=== PATIENT | female | born 1970 | race Caucasian/White ===

== ENCOUNTER 2023-10-14 09:46 | Outpatient (OUT) | payer OTHER, SELFPAY ==
--- NOTE | 2023-10-14 09:48 | MM_ITS ---
Patient Name: OUSMANE JOVEL MR#: [id number] : 1970 Exam Date: 10/14/2023 Ordering Doctor: HELIO JUARES RADIOLOGY REPORT PROCEDURE: MM TOMOSYNTHESIS SCREENING BI COMPARISON: MG MAMM SCREEN 3D RITA CAD, 09/12/2021. MG MAMM SCREEN 3D RITA CAD, 09/13/2022. INDICATIONS: screening Calculator Name NCI Breast Cancer Risk Assessment Tool 5 Year Breast Cancer Risk 2.90% Lifetime Breast Cancer Risk 23.20% Personal Breast Cancer No Personal Ovarian Cancer No Treatments None Family Cancers Sister with breast cancer at age 47. LOCATION: [facility] BREAST COMPOSITION: Scattered areas fibroglandular density. FINDINGS: DIAGNOSTIC CATEGORY 1--NEGATIVE. NO CHANGE FROM COMPARISON ASSESSMENT. Scattered benign-appearing calcifications are present. RIGHT BREAST: No significant suspicious finding. LEFT BREAST: No significant suspicious finding. RECOMMENDATIONS: ROUTINE MAMMOGRAM AND CLINICAL EVALUATION IN 12 MONTHS. PLEASE NOTE: A NORMAL MAMMOGRAM DOES NOT EXCLUDE THE POSSIBILITY OF BREAST CANCER. A CLINICALLY SUSPICIOUS PALPABLE LUMP SHOULD BE BIOPSIED. Dictated by: David Collado MD on 10/14/2023 at 10:28 Approved by: David Collado MD on 10/14/2023 at 10:32
== END 2023-10-14 09:47 | disposition home or self-care (01) ==
LOC: MAMMO 09:47
PROVIDERS: PCP Nurse Practitioner; Visit Provider Nurse Practitioner
DX: Z12.31 Encounter for screening mammogram for malignant neoplasm of breast (principal); Z80.3 Family history of malignant neoplasm of breast
CPT/HCPCS: 77063; 77067

== ENCOUNTER 2025-04-02 21:53 | Emergency (ER) | payer OTHER, SELFPAY ==
[2025-04-02] VITALS (12 sets, daily range): BP systolic 94–134; BP diastolic 51–85; PULSE 80–155; TEMP 36.7; O2SAT 99–100
--- NOTE | 2025-04-02 22:00 | XR_ITS ---
[facility] [place] [id number] Patient Name: OUSMANE JOVEL MRN: [id number] date: 1970 Sex: F Assigned Patient Location: ED.MAIN Current Patient Location: Accession/Order Number: [id number] Exam Date: 04/02/2025 22:09 Report Date: 04/03/2025 08:23 At the request of: POOL SHAIKH MD Procedure: XR chest 1V XR chest 1V 04/02/2025 10:26 PM SIGNS AND SYMPTOMS: ^hypotensive PROTOCOL: Frontal radiograph of the chest COMPARISON: 03/11/2019 FINDINGS: The trachea is midline. The heart and mediastinal structures are within normal limits. The lung parenchyma is clear. The bony thorax is intact. XR/XR chest 1V IMPRESSION: No acute cardiopulmonary pathology. Impression dictated by: Tanner Meza M.D. 04/03/2025 8:23 AM Dictation Location: [place] [address] Electronically authenticated by: [id number] Y Date: 04/03/2025 08:23
--- NOTE | 2025-04-02 22:00 | ECG_ITS ---
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 Measurements Intervals [place] Rate: 86 P: 55 SC: 168 QRS: 60 QRSD: 96 T: 34 QT: 418 QTc: 461 Interpretive Statements 1100 Sinus rhythm 8304 Long QTc interval 9150 abnormal ECG Compared to ECG 04/10/2020 15:46:26 T-wave abnormality no longer present Electronically Signed On 04-03-2025 10:28:52 EDT by AUSTIN NUNEZ M.D.
--- OUTSIDE RECORDS SUMMARY | 2025-04-02 22:01 | XMS_ITS | Encounter Summary ---
Author Organization [employer] s tem Address [id number] [address] [place] [address] Care Team Providers Care Scientific Editor Name Role Phone Edson Acuña APRN-DEHYDRATION UNIT OPERATOR Primary Care Provider + Encounter Details Date Type Department Care Team (Late Contact Info) Description 12/01/2024 Orders Only [facility] - Family Medicine [address] [place] [address] Ref Prov, [place] [address] Social History Tobacco Use Types Packs/Day Years Used Date Smoking Tobacco: Former Cigarettes Smokeless Tobacco: Never Alcohol Use Standard Drinks/Week Comments Yes 0 (1 standard drink = 0.6 oz pur e alcohol) Socially PHQ-2 Answer Date Recorded Total Score 0 12/02/2024 Childcare Answer Date Recorded Childcare Unknown 12/16/2018 Employment Answer Date Recorded Employment Unknown 12/16/2018 Hunger Screening Answer Date Recorded Within the past 12 months we worried whether our food would run out before we got money to buy more. Never True 12/02/2024 Within the past 12 months th e food we bought just didn't last and we didn't have money to get more. Never True 12/02/2024 Comments No Sex and Gender Information Value Date Recorded Sex Assigned at Not on file Legal Sex Female 11:33 AM EDT Gender Identity Not on file Sexual Orientation Not on file documented as of this encounter Plan of Treatment Upcoming Encounters Date Type Department Care Team (Late Contact Info) Description 04/06/2025 10:00 AM EDT Office Visit [facility] - [facility] [address] [place] [address] Edson Acuña, DIRECTOR UNDERWRITER SALES-DEHYDRATION UNIT OPERATOR [address], [facility] [address] [place] [address] 05/03/2025 10:20 AM EDT Office Visit [facility] - Family Medicine [address] [place] [address] Edson Acuña, DIRECTOR UNDERWRITER SALES-DEHYDRATION UNIT OPERATOR [address], [facility] [address] [place] [address] documented as of this encounter Procedures Procedure Name Priority Date/Time Associated Diagnosis Comments MULTIPLE LABS Routine 11/30/2024 3:16 PM EDT documented in this encounter Results * Multiple labs (11/30/2024 3:16 PM EDT) us Not In System Ref Prov [facility] Final Res ult MANUALLY TRANSCRIBED RESULTS documented in this encounter Visit Diagnoses Not on filedocumented in this encounter Additional Health Concerns Assessment Noted Time PHQ-9 Depression Total Score: 0 01/21/20 24 3:23 PM EDT A Body Mass Index follow-up plan has been documented for the patient 07/29/2024 10:34 AM EST documented as of this encounter Care Teams Scientific Editor Relationship Specialty Start Date End Date Edson Acuña, DIRECTOR UNDERWRITER SALES-DEHYDRATION UNIT OPERATOR [address] [place] [address] PCP - General Internal Medicine 01/31/25 documented as of this encounter
--- OUTSIDE RECORDS SUMMARY | 2025-04-02 22:01 | XMS_ITS | Encounter Summary ---
Author Organization [facility] Address [address] [facility] [place] [address] Care Team Providers Care Journal Box Inspector Name Role Phone Marguerite Evangelista Unavailable [phone] Anthony Harris MD Primary Care Provider [phone] Encounter Details Date Type Department Care Team (Late st Contact Info) Description 02/24/2023 Abstract [facility] [address] [place] [phone] Bret Gil, DPM [address] [place], [place] [phone] Social History Tobacco Use Types Packs/Day Years Used Date Smoking Tobacco: Never Alcohol Use Standard Drinks/Week Comments Never 0 (1 standard drink = 0.6 oz pur e alcohol) Caffeine intake: yes, coffee Comments Unknown Sex and Gender Information Value Date Recorded Sex Assigned at Not on file Legal Sex Female 7:09 PM EDT Gender Identity Not on file Sexual Orientation Not on file documented as of this encounter Plan of Treatment Not on file documented as of this encounter Visit Diagnoses Not on filedocumented in this encounter Care Teams Journal Box Inspector Relationship Specialty Start Date End Date Anthony Harris MD PCP - General Family Medicine 09/23/23 Marguerite Evangelista CRNP Referring Physician Nurse Practitioner 01/27/23 documented as of this encounter
--- OUTSIDE RECORDS SUMMARY | 2025-04-02 22:01 | XMS_ITS | Encounter Summary ---
Author [facility] Address [id number] [address] [place] [address] Care Team Providers Care Retail Manager Name Role Phone Edson Acuña Klaudia REGISTERED TRAVEL NURSE-AGRICULTURE PROFESSOR Primary Care Provider + Encounter Details Date Type Department Care Team (Late Contact Info) Description 10/13/2023 Orders Only [facility] - Family Medicine [address] [place] [address] Marguerite Evangelista, REGISTERED TRAVEL NURSE-AGRICULTURE PROFESSOR [address] [place] [address] Social History Tobacco Use Types Packs/Day Years Used Date Smoking Tobacco: Former Cigarettes Smokeless Tobacco: Never Alcohol Use Standard Drinks/Week Comments Yes 0 (1 standard drink = 0.6 oz pur e alcohol) Socially PHQ-2 Answer Date Recorded Total Score 0 10/09/2023 Childcare Answer Date Recorded Childcare Unknown 12/16/2018 Employment Answer Date Recorded Employment Unknown 12/16/2018 Hunger Screening Answer Date Recorded Within the past 12 months we worried whether our food would run out before we got money to buy more. Never True 10/09/2023 Within the past 12 months th e food we bought just didn't last and we didn't have money to get more. Never True 10/09/2023 Comments No Sex and Gender Information Value [...] - Family Medicine [address] [place] [address] Edson Acuña, REGISTERED TRAVEL NURSE-AGRICULTURE PROFESSOR [address], [facility] [address] [place] [address] 05/03/2025 10:20 AM EDT Office Visit [facility] - Family Medicine [address] [place] [address] Edson Acuña, REGISTERED TRAVEL NURSE-AGRICULTURE PROFESSOR [address], [facility] [address] [place] [address] documented as of this encounter Visit Diagnoses Not on filedocumented in this encounter Additional Health Concerns Assessment Noted Time PHQ-9 Depression Total Score: 0 10/09/19 24 1:03 PM EDT A Body Mass Index follow-up plan has been documented for the patient 10/09/2023 1:58 PM EDT documented as of this encounter Care Teams Retail Manager Relationship Specialty Start Date End Date Edson Acuña, REGISTERED TRAVEL NURSE-AGRICULTURE PROFESSOR [address] [place] [address] PCP - General Internal Medicine 01/31/25 documented as of this encounter
--- OUTSIDE RECORDS SUMMARY | 2025-04-02 22:01 | XMS_ITS | Encounter Summary ---
Author Organization [employer] s tem Address [id number] [address] [place] [address] Care Team Providers Care Melter Clerk Name Role Phone Edson Acuña APRN-PROFESSOR OF LEGAL STUDIES Primary Care Provider + Encounter Details Date Type Department Care Team (Late Contact Info) Description 04/01/2025 Orders Only [facility] - Family Medicine [address] [place] [address] Ref Prov, [place] [address] Social History Tobacco Use Types Packs/Day Years [...] - Family Medicine [address] [place] [address] Edson Acuña, PENCIL INSPECTOR-PROFESSOR OF LEGAL STUDIES [address], [address] [place] [address] 05/03/2025 10:20 AM EDT Office Visit [facility] - Family Medicine [address] [place] [address] Edson Acuña, PENCIL INSPECTOR-PROFESSOR OF LEGAL STUDIES [address], [facility] [address] [place] [address] documented as of this encounter Procedures Procedure Name Priority Date/Time Associated Diagnosis Comments MULTIPLE LABS Routine 04/01/2025 8:03 AM EDT CBC W AUTO DIFF BLD Routine 04/01/2025 6:54 AM EDT documented in this encounter Results * Multiple labs (04/01/2025 8:03 AM EDT) us Not In System Ref Prov [facility] Final Res ult Performing Organization Address [facility] de Phone Number MANUALLY TRANSCRIBED RESULTS * CBC W Auto Diff Bld (04/01/2025 6:54 AM EDT) us Not In System Ref Prov LAB BLOOD ORDERABLES Elizabeth l Result Performing Organization Address [facility] de Phone Number MANUALLY TRANSCRIBED RESULTS documented in this encounter Visit Diagnoses Not on filedocumented in this encounter Additional Health Concerns Assessment Noted Time PHQ-9 Depression Total Score: 0 12/03/19 8:40 AM EDT A Body Mass Index follow-up plan has been documented for the patient 12/02/2024 9:14 AM EDT documented as of this encounter Care Teams Melter Clerk Relationship Specialty Start Date End Date Edson Acuña, PENCIL INSPECTOR-PROFESSOR OF LEGAL STUDIES [address] [place] [address] PCP - General Internal Medicine 01/31/25 documented as of this encounter
--- OUTSIDE RECORDS SUMMARY | 2025-04-02 22:01 | XMS_ITS | Clinical Summary ---
Author Organization [facility] Address [address] [place] [address] Care Team Providers Care Cop Name Role Phone Marguerite Evangelista ISI Unavailable [phone] Anthony Harris MD Primary Care Provider [phone] Allergies Active Allergy Reactions Criticality Noted Date Comments Hydromorphone Anaphylaxis,Shortnes s of breath High 01/27/2023 Sulfamethoxazole-Trimethoprim Rash Low 2011 Medications vilazodone (Viibryd) 20 MG tablet Take 20 mg by mouth in the morning. 07/19/2022 Active Xarelto 10 MG tablet Take 10 mg by mouth in the morning. 01/09/2023 Active levothyroxine (Synthroid, Levoxyl) 137 MCG tablet Take 137 mcg by mouth in the morning. 01/21/2023 Active diclofenac sodium (Voltaren XR) 100 mg 24 hr tablet Take 100 mg by mouth in the morning and 100 mg before bedtime. 01/08/2023 Active Multiple Vitamin (multivitamin) tablet Take 1 tablet by mouth in the morning. Active calcium citrate (Calcitrate) 950 (200 Ca) MG tablet Take 950 mg by mouth in the morning. Active FeroSul 325 (65 Fe) MG tablet Take 1 tablet by mouth in the morning. Active celecoxib (CeleBREX) 200 MG capsule Take 200 mg by mouth in the morning and 200 mg in the evening. 06/05/2023 Active pseudoephedrine -DM-GG 60-15-400 MG tabletIndicatio ns:COVID-19 Take 1 tablet by mouth every 6 (six) hours if needed (Cough) 28 tablet 05/01/2024 Active Encounters Date Type Department Care Team Description 02/24/2025 10:00 AM EDT Treatment [facility] [address] [facility] [address] [place] [address] Melly Petersonissa, MARKETING TRAFFIC MANAGER Contracture, right knee (Primary Dx); Acute pain of right knee; Difficulty walking; Stiffness of right knee 02/24/2025 Bamboo flowsheet [facility] [address] [facility] [address] [place] [address] Kristen, Daxa, MARKETING TRAFFIC MANAGER 02/24/2025 Travel 02/22/2025 10:30 AM EDT Treatment [facility] [address] [facility] [address] [place] [address] Melly Petersonissa, MARKETING TRAFFIC MANAGER Contracture, right knee (Primary Dx); Acute pain of right knee; Difficulty walking; Stiffness of right knee 02/22/2025 Bamboo flowsheet [facility] [address] [facility] [address] [place] [address] Bernardobley, Daxa, MARKETING TRAFFIC MANAGER 02/22/2025 Travel 02/15/2025 11:00 AM EDT Treatment [facility] [address] [facility] [address] [place] [address] Lázaro Kamran, MARKETING TRAFFIC MANAGER Contracture, right knee (Primary Dx); Acute pain of right knee; Difficulty walking; Stiffness of right knee 02/15/2025 Bamboo flowsheet [facility] [address] [facility] [address] [place] [address] Lázaro Kamran, MARKETING TRAFFIC MANAGER 02/15/2025 Travel 02/10/2025 1:30 PM EDT Treatment [facility] [address] [facility] [address] [place] [address] Iván Nichols, MARKETING TRAFFIC MANAGER Contracture, right knee (Primary Dx); Acute pain of right knee; Difficulty walking; Stiffness of right knee 02/10/2025 Bamboo flowsheet [facility] [address] [facility] [address] [place] [address] Iván Nichols, MARKETING TRAFFIC MANAGER 02/10/2025 Travel 02/08/2025 12:30 PM EDT Treatment [facility] [address] [place] [place] [address] Kelbley, Daxa, MARKETING TRAFFIC MANAGER Contracture, right knee (Primary Dx); Acute pain of right knee; Difficulty walking 02/08/2025 Travel 02/07/2025 2:30 PM EDT Treatment [facility] [address] [place] [place] [address] Kelbley, Daxa, MARKETING TRAFFIC MANAGER Contracture, right knee (Primary Dx); Acute pain of right knee 02/07/2025 Bamboo flowsheet [facility] [address] [facility] [address] [place] [address] Kelbley, Daxa, MARKETING TRAFFIC MANAGER 02/07/2025 Travel 02/04/2025 9:30 AM EDT Treatment [facility] [address] [facility] [address] [place] [address] Kelbley, Daxa, MARKETING TRAFFIC MANAGER Contracture, right knee (Primary Dx); Acute pain of right knee 02/04/2025 Travel 02/03/2025 2:00 PM EDT Treatment [facility] [address] [facility] [address] [place] [address] Kelbley, Daxa, MARKETING TRAFFIC MANAGER Contracture, right knee (Primary Dx); Acute pain of right knee 02/03/2025 Bamboo flowsheet [facility] [address] [facility] [address] [place] [address] Kelbley, Daxa, MARKETING TRAFFIC MANAGER 02/03/2025 Travel 02/02/2025 2:00 PM EDT Evaluation [facility] [address] [facility] [address] [place] [address] Ching Mckenzie, PT Contracture, right knee (Primary Dx); Acute pain of right knee 02/02/2025 Plan of Care Documentation [facility] [address] [facility] [address] [place] [address] 02/02/2025 Bamboo flowsheet [facility] [address] [place] [place] [address] Ching Mckenzie, PT 02/02/2025 Travel 01/26/2025 Telephone [facility] [address] [place] [place] [address] Kelbley, Daxa, MARKETING TRAFFIC MANAGER LEXIS 02/01/25 (Per Dr. Duvall) 01/24/2025 11:00 AM EDT Treatment [facility] [address] [facility] [address] [place] [address] Ching Mckenzie, PT Acute pain of right knee (Primary Dx); Difficulty walking; Stiffness of right knee 01/24/2025 Bamboo flowsheet [facility] [address] [facility] [address] [place] [address] Ching Mckenzie, PT 01/24/2025 Travel 01/21/2025 2:30 PM EDT Treatment [facility] [address] [facility] [address] [place] [address] Kelbley, Daxa, MARKETING TRAFFIC MANAGER Acute pain of right knee (Primary Dx); Difficulty walking; Stiffness of right knee 01/21/2025 Bamboo flowsheet [facility] [address] [facility] [address] [place] [address] Kelbley, Daxa, MARKETING TRAFFIC MANAGER 01/21/2025 Travel 01/19/2025 1:30 PM EDT Treatment [facility] [address] [place] [place] [address] Kelbley, Daxa, MARKETING TRAFFIC MANAGER Acute pain of right knee (Primary Dx); Difficulty walking; Stiffness of right knee 01/19/2025 Bamboo flowsheet [facility] [address] [place] [place] [address] Melly Petersonissa, MARKETING TRAFFIC MANAGER 01/19/2025 Travel 01/17/2025 2:30 PM EDT Treatment [facility] [address] [facility] [address] [place] [address] Melly Petersonissa, MARKETING TRAFFIC MANAGER Acute pain of right knee (Primary Dx); Difficulty walking; Stiffness of right knee 01/17/2025 Bamboo flowsheet [facility] [address] [facility] [address] [place] [address] Melly Petresonissa, MARKETING TRAFFIC MANAGER 01/17/2025 Travel 01/13/2025 2:30 PM EDT Treatment [facility] [address] [facility] [address] [place] [address] Melly Petersonissa, MARKETING TRAFFIC MANAGER Acute pain of right knee (Primary Dx); Difficulty walking; Stiffness of right knee 01/13/2025 Bamboo flowsheet [facility] [address] [facility] [address] [place] [address] Daxa Peterson, MARKETING TRAFFIC MANAGER 01/13/2025 Travel 01/10/2025 2:30 PM EDT Treatment [facility] [address] [facility] [address] [place] [address] Melly Petersonissa, MARKETING TRAFFIC MANAGER Acute pain of right knee (Primary Dx); Difficulty walking; Stiffness of right knee 01/10/2025 Bamboo flowsheet [facility] [address] [facility] [address] [place] [address] Melly Petersonissa, MARKETING TRAFFIC MANAGER 01/10/2025 Travel 01/06/2025 12:30 PM EDT Treatment [facility] [address] [facility] [address] [place] [address] Iván Nichols, MARKETING TRAFFIC MANAGER Acute pain of right knee (Primary Dx); Difficulty walking; Stiffness of right knee 01/06/2025 Bamboo flowsheet [facility] [address] [facility] [address] [place] [address] Magdalena, Iván, MARKETING TRAFFIC MANAGER 01/06/2025 Travel 01/05/2025 Plan of Care Documentation [facility] [address] [facility] [address] [place] [address] 01/04/2025 3:30 PM EDT Evaluation [facility] [address] [facility] [address] [place] [address] Enrique Roca, PT Acute pain of right knee (Primary Dx); Difficulty walking; Stiffness of right knee 01/04/2025 Bamboo flowsheet [facility] [address] [facility] [address] [place] [address] Enrique Roca, PT 01/04/2025 Travel 01/03/2025 Travel from Last 3 Months Family History Medical History Relation Name Comments Diabetes Father Breast cancer Sister Relation Name Status Comments Father Alive Mother Alive Sister Social History Tobacco Use Types Packs/Day Years Used Date Smoking Tobacco: Never Tobacco Cessation:Counseling Given: Not Answered Alcohol Use Standard Drinks/Week Comments Never 0 (1 standard drink = 0.6 oz pur e alcohol) Caffeine intake: yes, coffee Comments Unknown Sex and Gender Information Value Date Recorded Sex Assigned at Not on file Legal Sex Female 7:09 PM EDT Gender Identity Not on file Sexual Orientation Not on file Last Filed Vital Signs Vital Sign Reading Time Taken Comments Blood Pressure 118/70 05/01/2024 9:04 AM EDT Pulse 87 05/01/2024 9:04 AM EDT Temperature 37.1 C (98.7 F) 05/01/2024 9:04 AM EDT Respiratory Rate - - Oxygen Saturation 98% 05/01/2024 9:04 AM EDT Inhaled Oxygen Concentration - - Weight 79.8 kg (176 lb) 05/01/2024 9:04 AM EDT Height 170.2 cm (5' 7 ) 03/31/2024 9:51 AM EDT Body Mass Index 27.57 03/31/2024 9:51 AM EDT Plan of Treatment Health Maintenance Due Date Last Done Comments CT Colonography 1972 Colonoscopy 1972 Colorectal Cancer Screening 1972 FIT-DNA 1972 FIT 1972 FOBT 1972 Sigmoidoscopy 1972 Pap Smear 1993 Cervical Cancer Screening 2002 HPV/Cotest 2002 Mammogram 10/13/2024 10/14/2023 Influenza Vaccine (#1) 2025 Insurance [employer] Care Teams Cop Relationship Specialty Start Date End Date Anthony Harris MD PCP - General Family Medicine 09/23/23 Marguerite Evangelista CRNP Referring Physician Nurse Practitioner 01/27/23
--- OUTSIDE RECORDS SUMMARY | 2025-04-02 22:01 | XMS_ITS | Clinical Summary ---
Author Organization [employer] Address [id number] [address] [place] [address] Care Team Providers Care Molecular Modeler Name Role Phone Edson Acuña APRN-BUTTON RIVETER Primary Care Provider + Allergies Active Allergy Reactions Criticality Noted Date Comments Hydromorphone Anaphylaxis,Swelling High 01/27/2023 Sulfamethoxazole-Trimethoprim Rash Low 2011 Medications dydhtpmwbyyo-Qx-fgv n-minerals tablet Take 1 tablet by mouth in the morning. Active ALPRAZolam (XANAX) 0.25 mg tabletIndications:S ituational anxiety Take 1 tablet (0.25 mg total) by mouth daily as needed for anxiety. 30 tablet 5 Active NURTEC ODT 75 mg tablet,disintegrati ngIndications:Migra ine without aura and with status migrainosus, not intractable DISSOLVE ONE TABLET ON THE TONGUE ONCE DAILY NEEDED 9 tablet 3 5 Active ferrous sulfate (FeroSuL) 325 (65 FE) MG tabletIndications:S tatus post bariatric surgery,Other iron deficiency anemia Take 1 tablet (325 mg total) by mouth daily with breakfast. 90 tablet 2 5 Active vilazodone (VIIBRYD) 20 mg tabletIndications:M ajor depressive disorder with current active episode, unspecified depression episode severity, unspecified whether recurrent TAKE 1 TABLET BY MOUTH IN THE MORNING 90 tablet 1 5 Active levothyroxine (SYNTHROID, LEVOTHROID) 137 MCG tabletIndications:A cquired hypothyroidism TAKE 1 TABLET BY MOUTH IN THE MORNING 90 tablet 1 5 Active XARELTO 10 mg tabletIndications:H istory of blood clots TAKE 1 TABLET BY MOUTH IN THE MORNING 90 tablet 1 5 Active diclofenac sodium (VOLTAREN XR) 100 mg 24 hr tabletIndications:C hronic SI joint pain,Chronic pain of both knees Take 1 tablet (100 mg total) by mouth in the morning and at bedtime. 180 tablet 5 Active Active Problems No known active problems Encounters Date Type Department Care Team Description 04/01/2025 Orders Only [facility] - [facility] [address] [facility] [address] [address] Ref Prov, Not In System 02/09/2025 Refill [facility] [address] [facility] [address] [address] Wendy Rocha CMA Chronic SI joint pain; Chronic pain of both knees 02/02/2025 Refill [facility] [address] [facility] [address] [address] Judit Daigle CMA History of blood clots; Acquired hypothyroidism; Chronic SI joint pain; Chronic pain of both knees; Major depressive disorder with current active episode, unspecified depression episode severity, unspecified whether recurrent 01/29/2025 Refill [facility] [address] [facility] [place] [address] Marguerite Evangelista, SYSTEMS SECURITY ANALYST-BUTTON RIVETER Major depressive disorder with current active episode, unspecified depression episode severity, unspecified whether recurrent; Acquired hypothyroidism; History of blood clots from Last 3 Months Family History Medical History Relation Name Comments Diabetes Father No Known Problems Mother Breast cancer Sister Autism Son Relation Name Status Comments Father Alive Mother Alive Sister Alive Son Alive Social History Tobacco Use Types Packs/Day Years [...] Sign Reading Time Taken Comments Blood Pressure 108/78 12/02/2024 8:40 AM EDT Pulse 79 12/02/2024 8:40 AM EDT Temperature 36.8 C (98.2 F) 12/02/2024 8:40 AM EDT Respiratory Rate 18 12/02/2024 8:40 AM EDT Oxygen Saturation 99% 12/02/2024 8:40 AM EDT Inhaled Oxygen Concentration - - Weight 72.1 kg (159 lb) 12/02/2024 8:40 AM EDT Height 168.9 cm (5' 6.5 ) 12/02/2024 8:40 AM EDT Body Mass Index 25.28 12/02/2024 8:40 AM EDT Plan of Treatment Upcoming Encounters Date Type Department Care Team (Late st Contact Info) Description 04/06/2025 10:00 AM EDT Office Visit [facility] [address] [place] [address] Edson Acuña, SYSTEMS SECURITY ANALYST-BUTTON RIVETER [address] [place] [address] 05/03/2025 10:20 AM EDT Office Visit [facility] [address] [place] [address] Edson Acuña, SYSTEMS SECURITY ANALYST-BUTTON RIVETER [address] [place] [address] Health Maintenance Due Date Last Done Comments DTaP,Tdap and Td Vaccines (1 - Tdap) 1991 Zoster (Shingles) Vaccine (1 of 2) 2022 COVID-19 Vaccine (3 - season) 2025, 03/09/2021 Influenza Vaccine 03/07/2025 Adult BMI Follow Up Plan 12/02/2025 12/02/2024 Adult BMI Screening 12/02/2025 12/02/2024 Depression Screening 12/02/2025 12/02/2024 Tobacco Screening 12/02/2025 12/02/2024 Medical Devices Implanted Type Area Top Installer Device Identifier Shelf Expiration Date Model / Serial / Lot Nail Im 52mm 3 Hl Lt Lapidus - Sn/A - [id number] Implanted:Qty: 1 on 03/27/2023 by Bret Gil DPM at [facility] Nail Left: Foot [employer] 03/27/2023 [id number] 52 / N/A / N/A Peg Fx 3.5mm 20mm Thrd Phntm Lapidus - Sn/A - [id number] Implanted:Qty: 1 on 03/27/2023 by Bret Gil DPM at [facility] Orthopedic Implant Left: Foot [employer] 03/27/2023 [id number] 20 / N/A / N/A Peg Fx 3.5mm 16mm Thrd Phntm Lapidus - Sn/A - [id number] Implanted:Qty: 1 on 03/27/2023 by Bret Gil DPM at [facility] Orthopedic Implant Left: Foot [employer] 03/27/2023 [id number] 16 / N/A / N/A Peg Fx 3.5mm 12mm Antirotation Phntm Lapidus - Sn/A - [id number] Implanted:Qty: 1 on 03/27/2023 by Bret Gil DPM at [facility] Orthopedic Implant Left: Foot [employer] 03/27/2023 [id number] 12 / N/A / N/A Screw Bn 12mm 2.7mm Bite Mnstr St Ns - Sn/A - [id number] Implanted:Qty: 1 on 03/27/2023 by Bret Gil DPM at [facility] Screw Left: Foot [employer] 03/27/2023 [id number] 12S / N/A / N/A Explanted Type Area Top Installer Device Identifier Shelf Expiration Date Model / Serial / Lot Wire Fx Krsh 2mm 150mm 1 End Troc Tip Smth - Sn/A - [id number] Explanted:Qty : 4 on 03/27/2023 by Bret Gil DPM at [facility] Orthopedic Implant Left: Foot [employer] 03/27/2023 [id number] 015 / N/A / N/A Wire Fx Krsh 1.6mm 100mm 1 End Troc Tip Smth - Sn/A - [id number] Explanted:Qty : 4 on 03/27/2023 by Bret Gil DPM at [facility] Orthopedic Implant Left: Foot [employer] 03/27/2023 [id number] / N/A / N/A Procedures Procedure Name Priority Date/Time Associated Diagnosis Comments MULTIPLE LABS Routine 04/01/2025 8:03 AM EDT CBC W AUTO DIFF BLD Routine 04/01/2025 6:54 AM EDT from Last 3 Months Results * Multiple labs (04/01/2025 8:03 AM EDT) us Not In System Ref Prov MS IMAGING Final Res ult Performing Organization Address [facility] de Phone Number MANUALLY TRANSCRIBED RESULTS * CBC W Auto Diff Bld (04/01/2025 6:54 AM EDT) us Not In System Ref Prov LAB BLOOD ORDERABLES Elizabeth l Result Performing Organization Address [facility] de Phone Number MANUALLY TRANSCRIBED RESULTS from Last 3 Months Insurance [employer] Care Teams Molecular Modeler Relationship Specialty Start Date End Date Edson Acuña, SYSTEMS SECURITY ANALYST-BUTTON RIVETER [address] [facility] [place] [address] PCP - General Internal Medicine 01/31/25
--- OUTSIDE RECORDS SUMMARY | 2025-04-02 22:01 | XMS_ITS | Encounter Summary ---
Author Organization [facility] Address [address] [facility] [place] [address] Care Team Providers Care Cnc Router Operator Name Role Phone Marguerite Evangelista Unavailable [phone] Anthony Harris MD Primary Care Provider [phone] Encounter Details Date Type Department Care Team (Late st Contact Info) Description 02/24/2023 Abstract [facility] [address] [place] [id number] Bret Gil, DPM [address] [place], [place] [id number] Social History Tobacco Use Types Packs/Day Years [...] on filedocumented in this encounter Care Teams Cnc Router Operator Relationship Specialty Start Date End Date Anthony Harris MD PCP - General Family Medicine 09/23/23 Marguerite Evangelista CRNP Referring Physician Nurse Practitioner 01/27/23 documented as of this encounter
--- OUTSIDE RECORDS SUMMARY | 2025-04-02 22:01 | XMS_ITS | Encounter Summary ---
Author Organization [facility] Address [address] [place] [address] Care Team Providers Care Medical Record Specialist Name Role Phone Marguerite Evangelista Unavailable [phone] Anthony Harris MD Primary Care Provider [phone] Encounter Details Date Type Department Care Team (Late st Contact Info) Description 01/24/2023 Abstract [facility] [address] [place] [phone] Bret Gil, DPM [address] [place], [place] [phone] Social History Tobacco Use Types Packs/Day Years [...] on filedocumented in this encounter Care Teams Medical Record Specialist Relationship Specialty Start Date End Date Anthony Harris MD PCP - General Family Medicine 09/23/23 Marguerite Evangelista CRNP Referring Physician Nurse Practitioner 01/27/23 documented as of this encounter
--- OUTSIDE RECORDS SUMMARY | 2025-04-02 22:01 | XMS_ITS | Clinical Summary ---
Author Organization [facility] Address [address] [place] [address] Phone Care Team Providers Care Senior Network Architect Name Role Phone Unavailable Primary Care Provider Unavailabl e Social History Tobacco Use Types Packs/Day Years Used Date Smoking Tobacco: Never Assessed Comments Unknown Sex and Gender Information Value Date Recorded Sex Assigned at Not on file Legal Sex Female 7:49 AM EST Gender Identity Not on file Sexual Orientation Not on file Plan of Treatment Not on file
--- OUTSIDE RECORDS SUMMARY | 2025-04-02 22:01 | XMS_ITS | Encounter Summary ---
Author Organization [facility] Address [address] [place] [address] Care Team Providers Care Sagger Filler Name Role Phone Marguerite Evangelista Unavailable [phone] Anthony Harris MD Primary Care Provider [phone] Encounter Details Date Type Department Care Team (Late st Contact Info) Description 04/24/2023 Abstract [facility] [address] [place] [phone] Bret Gil, DPM [address] [place], [place] [phone] Social History Tobacco Use Types Packs/Day Years [...] on filedocumented in this encounter Care Teams Sagger Filler Relationship Specialty Start Date End Date Anthony Harris MD PCP - General Family Medicine 09/23/23 Marguerite Evangelista CRNP Referring Physician Nurse Practitioner 01/27/23 documented as of this encounter
--- OUTSIDE RECORDS SUMMARY | 2025-04-02 22:01 | XMS_ITS | Encounter Summary ---
Author Organization [employer] Address [id number] [address] [place] [address] Care Team Providers Care Guidance Services Coordinator Name Role Phone Edson Acuña APRN-ASSEMBLER TESTER Primary Care Provider + Encounter Details Date Type Department Care Team (Late Contact Info) Description 12/03/2024 Orders Only [facility] - [facility] [address] [place] [address] Ref Prov, [place] [address] Social History Tobacco Use Types Packs/Day Years [...] Upcoming Encounters Date Type Department Care Team ([facility] Contact Info) Description 04/06/2025 10:00 AM EDT Office Visit [facility] [address] [place] [address] Edson Acuña, TOW OPERATOR-ASSEMBLER TESTER [address] [facility] [address] [place] [address] 05/03/2025 10:20 AM EDT Office Visit [facility] [address] [place] [address] Edson Acuña, TOW OPERATOR-ASSEMBLER TESTER [address] [facility] [address] [place] [address] documented as of this encounter Procedures Procedure Name Priority Date/Time Associated Diagnosis Comments CBC W AUTO DIFF BLD Routine 11/30/2024 9 :26 AM EDT documented in this encounter Results * CBC W Auto Diff Bld (11/30/2024 9:26 AM EDT) us Not In System Ref Prov LAB BLOOD ORDERABLES Elizabeth l Result MANUALLY TRANSCRIBED RESULTS documented in this encounter Visit Diagnoses Not on filedocumented in this encounter Additional Health Concerns Assessment Noted Time PHQ-9 Depression Total Score: 0 12/03/19 8:40 AM EDT A Body Mass Index follow-up plan has been documented for the patient 12/02/2024 9:14 AM EDT documented as of this encounter Care Teams Guidance Services Coordinator Relationship Specialty Start Date End Date Edson Acuña, TOW OPERATOR-ASSEMBLER TESTER [address] [place] [address] PCP - General Internal Medicine 01/31/25 documented as of this encounter
--- OUTSIDE RECORDS SUMMARY | 2025-04-02 22:01 | XMS_ITS | Encounter Summary ---
Author Organization [employer] Address [id number] [address] [place] [address] Care Team Providers Care State Historical Society Director Name Role Phone Edson Acuña Klaudia CAR STARTER-ROAD DRIVER Primary Care Provider + Encounter Details Date Type Department Care Team (Late st Contact Info) Description 10/14/2023 Orders Only [facility] - Family Medicine [address] [place] [address] Marguerite Evangelista, CAR STARTER-ROAD DRIVER [address] [place] [address] Encounter for screening mammogram for malignant neoplasm of breast Social History Tobacco Use Types Packs/Day Years [...] - Family Medicine [address] [place] [address] Edson Acuña, CAR STARTER-ROAD DRIVER [address] [place] [address] 05/03/2025 10:20 AM EDT Office Visit [facility] Medicine [address] [place] [address] Edson Acuña, CAR STARTER-ROAD DRIVER [address] [facility] [address] [place] [address] documented as of this encounter Procedures Procedure Name Priority Date/Time Associated Diagnosis Comments MAMM SCREENING BILATERAL W CAD Routine 10/14/2023 12:34 PM EDT Encounter for screening mammogram for malignant neoplasm of breast documented in this encounter Results * Mammography screening bilateral with CAD (10/14/2023 12:34 PM EDT) Anatomical Region Laterality Modality Breast Bilateral Mammography Marguerite Evangelista CAR STARTER-ROAD DRIVER IMG MAMMOGRAPHY ORDE JOHN Final Result documented in this encounter Visit Diagnoses Diagnosis Encounter for screening mammogram for malignant neoplasm of breast documented in this encounter Additional Health Concerns Assessment Noted Time PHQ-9 Depression Total Score: 0 10/09/19 24 1:03 PM EDT A Body Mass Index follow-up plan has been documented for the patient 10/09/2023 1:58 PM EDT documented as of this encounter Care Teams State Historical Society Director Relationship Specialty Start Date End Date Edson Acuña, CAR STARTER-NANCY [address] [place] [address] PCP - General Internal Medicine 01/31/25 documented as of this encounter
--- OUTSIDE RECORDS SUMMARY | 2025-04-02 22:01 | XMS_ITS | Encounter Summary ---
Author Organization [facility] Address [address] [facility] [place] [address] Care Team Providers Care Shaker Flatwork Name Role Phone Marguerite Evangelista Unavailable [phone] Anthony Harris MD Primary Care Provider [phone] Encounter Details Date Type Department Care Team (Late st Contact Info) Description 04/24/2023 Abstract [facility] [address] [place] [phone] Bret Gil, DPM [address] [place], [place] [phone] Social History Tobacco Use Types Packs/Day Years [...] on filedocumented in this encounter Care Teams Shaker Flatwork Relationship Specialty Start Date End Date Anthony Harris MD PCP - General Family Medicine 09/23/23 Marguerite Evangelista CRNP Referring Physician Nurse Practitioner 01/27/23 documented as of this encounter
--- NOTE | 2025-04-02 22:04 | ED.GENADUL1 ---
HPI HPI - General Adult General Chief complaint: Syncope Stated complaint: Syncope Time Seen by Provider: 04/02/25 22:00 Source: patient Mode of arrival: ambulance History of Present Illness HPI narrative: patient was at an event. was drinking alcohol and smoked marijuana. she normally does not use marijuana . The marijuana was provided for her. She does not remember what happened. Squad found her hypotensive with decreased responsiveness. . She vomited several times. After vomiting her BP improved. She was also hydrated with 500cc NS before arrival. Arrives with BP 94/56. She is awake but appears sedated. No longer nauseated and did not require anti emetic. Received IV fluids enroute. Has uncontrolled shaking chills that comes and goes and complains of lower back pain. No chest pain or headache. No urinary symptoms or abdominal pain Related Data Allergies Allergy/AdvReac Type Severity Reaction Status Date / Time hydromorphone (From Dilaudid) Allergy Severe Unknown Verified 04/02/25 22:02 sulfamethoxazole (From Allergy Severe Unknown Verified 04/02/25 22:02 Bactrim) trimethoprim (From Bactrim) Allergy Severe Unknown Verified 04/02/25 22:02 Opioid HPI Opioid Management Most Recent Opioid Data: Ur Phencyclidine Scrn, (NEGATIVE) Negative 04/02/25, 23:45 Review of Systems ROS Status of ROS 10 or more systems reviewed and unremarkable except as noted in history and below Exam Constitutional Vital Signs, click to edit/add: Last Vital Signs Temp 98.0 F 04/02/25 21:55 Pulse 81 04/03/25 01:20 Resp 19 04/03/25 00:30 BP 131/74 04/03/25 01:20 Pulse Ox 95 04/03/25 00:30 O2 Del Method Room Air 04/02/25 21:55 Common normals: average body habitus, oriented x3, alert and well nourished HENCA Common normals: normocephalic and head/scalp atraumatic Eye Common normals: EOMs intact bilaterally and conjunctivae normal Respiratory Common normals: no retractions, no use of accessory muscles and clear to auscultation bilaterally Other: tachypnea but no distress. shaking GI Common normals: Normal to inspection, nondistended, normoactive bowel sounds present, soft to palpation and non-tender Extremity Common normals: normal to inspection and full ROM Neuro Common normals: oriented x3, CN's II-XII intact bilaterally, moves all extremities and no focal motor deficits Psych Appearance: grossly normal Course Vital Signs Vital signs: Vital Signs Temperature 98.0 F 04/02/25 21:55 Pulse Rate 80 04/02/25 21:55 Respiratory Rate 32 H 04/02/25 21:55 Blood Pressure 94/56 04/02/25 21:55 Pulse Oximetry 100 04/02/25 21:55 Oxygen Delivery Method Room Air 04/02/25 21:55 Temperature 98.0 F 04/02/25 21:55 Pulse Rate 81 04/03/25 01:20 Respiratory Rate 19 04/03/25 00:30 Blood Pressure 131/74 04/03/25 01:20 Pulse Oximetry 95 04/03/25 00:30 Oxygen Delivery Method Room Air 04/02/25 21:55 Medical Decision Making MDM Narrative Medical decision making narrative: presents altered after drinking alcohol and smoking marijuana. Found by Squad nauseated, diaphoretic and hypotensive . BP improved after she vomited several times. Also received IV fluids Enroute. Arrives AxOx3 but lethargic BAL 60. She was at a 35th high school reunion. she also does not drink alcohol with any regularity and does not use marijuana. Did both tonight. Patient with elevated lactic acid and was hydrated in the department. UA 2-5 WBC and trace epithelial cells. Patient given dose of Rocephin to cover for UTI. She is feeling better after several hours of observation and treatment in the ED serial troponin neg. Patient is feeling better. Discharged home in the care of her Lab Data Labs: Lab Results 04/02/25 04/02/25 04/02/25 Range/Units 22:13 23:25 23:45 WBC 4.8 (4.0-11.0) 10^3/uL RBC 4.11 L (4.20-5.40) 10^6/uL Hgb 12.1 (12.0-16.0) g/dL Hct 36.1 (36.0-48.0) % MCV 87.8 (81.0-99.0) fL MCH 29.4 (26.7-34.0) pg MCHC 33.5 (29.9-35.2) g/dL RDW 13.2 (11.0-15.0) % Plt Count 129 L (150-450) 10^3/uL MPV 11.2 (9.5-13.5) fL Neut % (Auto) 65.3 (43.0-75.0) % Lymph % (Auto) 24.4 (20.5-60.0) % [place] % (Auto) 8.7 (1.7-12.0) % Eos % (Auto) 0.4 L (0.9-7.0) % Baso % (Auto) 0.6 (0.2-2.0) % Neut # (Auto) 3.2 (1.4-6.5) 10^3/uL Lymph # (Auto) 1.2 (1.2-3.8) 10^3/uL [place] # (Auto) 0.4 (0.3-0.8) 10^3/uL Eos # (Auto) 0.0 (0.0-0.7) 10^3/uL Baso # (Auto) 0.0 (0.0-0.1) 10^3/uL Abs Immat Gran (auto) 0.03 (0.00-0.03) 10^3/uL Imm/Tot Granulo (auto) 0.6 H (0.0-0.5) % Sodium 135 L (136-145) mmol/L Potassium 3.2 L (3.5-5.1) mmol/L Chloride 103 (98-107) mmol/L Carbon Dioxide 20.8 L (21.0-32.0) mmol/L Anion Gap 14.4 BUN 16.0 (7.0-18.0) mg/dL Creatinine 1.02 (0.55-1.02) mg/dL Est GFR ( Amer) >60 (>=60 mL/min/1.73m^2) Est GFR (Non-Af Amer) 57 L (>=60 mL/min/1.73m^2) BUN/Creatinine Ratio 15.7 Glucose 93 (74-106) mg/dL Lactate 3.9 H* 2.6 H* (0.4-2.0) mmol/L Calcium 8.3 L (8.5-10.1) mg/dL Total Bilirubin 1.7 H (0.2-1.0) mg/dL AST 25 (15-37) U/L ALT 32 (14-59) U/L Alkaline Phosphatase 75 (46-116) U/L Troponin I High Sens 4.6 (4.0-51.3) pg/mL Total Protein 6.6 (6.4-8.2) g/dL Albumin 3.4 (3.4-5.0) g/dL Globulin 3.2 g/dL Albumin/Globulin Ratio 1.1 Urine Color Lt. yellow (YELLOW) Urine Clarity Clear (CLEAR) Urine pH 5.5 (5.0-9.0) Ur Specific [place] 1.020 (1.005-1.025) Urine Protein Negative (NEG/TRACE) mg/dL Urine Glucose (UA) Negative (NEGATIVE) mg/dL Urine Ketones Negative (NEGATIVE) mg/dL Urine Occult Blood Negative (NEGATIVE) Urine Nitrite Negative (NEGATIVE) Urine Bilirubin Negative (NEGATIVE) Urine Urobilinogen 0.2 (0.2-1.0) EU/dL Ur Leukocyte Esterase Small A (NEGATIVE) Urine RBC 0-2 (0-2) #/HPF Urine WBC 2-5 A (NONE SEEN) #/HPF Ur Squamous Epith Cells Few A (NONE/RARE) #/LPF Urine Crystals None seen (None Seen) #/HPF Urine Bacteria Trace A (NONE SEEN) #/HPF Urine Casts Seen A (NONE SEEN) #/LPF Hyaline Casts Moderate Urine Mucus None seen (NONE SEEN) Ur Culture Indicated? Yes-[facility] Urine Opiates Screen Negative (NEGATIVE) Ur Buprenorphine Scrn Negative (NEGATIVE) Ur Oxycodone Screen Negative (NEGATIVE) Urine Methadone Screen Negative (NEGATIVE) Ur Barbiturates Screen Negative (NEGATIVE) U Tricyclic Antidepress Negative (NEGATIVE) Ur Phencyclidine Scrn Negative (NEGATIVE) Ur Amphetamines Screen Negative (NEGATIVE) U Methamphetamines Scrn Negative (NEGATIVE) U Benzodiazepines Scrn Negative (NEGATIVE) Urine Cocaine Screen Negative (NEGATIVE) U Cannabinoids Screen Positive A (NEGATIVE) Ethanol Quant 60 mg/dL 04/03/25 Range/Units 01:04 WBC (4.0-11.0) 10^3/uL RBC (4.20-5.40) 10^6/uL Hgb (12.0-16.0) g/dL Hct (36.0-48.0) % MCV (81.0-99.0) fL MCH (26.7-34.0) pg MCHC (29.9-35.2) g/dL RDW (11.0-15.0) % Plt Count (150-450) 10^3/uL MPV (9.5-13.5) fL Neut % (Auto) (43.0-75.0) % Lymph % (Auto) (20.5-60.0) % [place] % (Auto) (1.7-12.0) % Eos % (Auto) (0.9-7.0) % Baso % (Auto) (0.2-2.0) % Neut # (Auto) (1.4-6.5) 10^3/uL Lymph # (Auto) (1.2-3.8) 10^3/uL [place] # (Auto) (0.3-0.8) 10^3/uL Eos # (Auto) (0.0-0.7) 10^3/uL Baso # (Auto) (0.0-0.1) 10^3/uL Abs Immat Gran (auto) (0.00-0.03) 10^3/uL Imm/Tot Granulo (auto) (0.0-0.5) % Sodium (136-145) mmol/L Potassium (3.5-5.1) mmol/L Chloride (98-107) mmol/L Carbon Dioxide (21.0-32.0) mmol/L Anion Gap BUN (7.0-18.0) mg/dL Creatinine (0.55-1.02) mg/dL Est GFR ( Amer) (>=60 mL/min/1.73m^2) Est GFR (Non-Af Amer) (>=60 mL/min/1.73m^2) BUN/Creatinine Ratio Glucose (74-106) mg/dL Lactate (0.4-2.0) mmol/L Calcium (8.5-10.1) mg/dL Total Bilirubin (0.2-1.0) mg/dL AST (15-37) U/L ALT (14-59) U/L Alkaline Phosphatase (46-116) U/L Troponin I High Sens 7.0 (4.0-51.3) pg/mL Total Protein (6.4-8.2) g/dL Albumin (3.4-5.0) g/dL Globulin g/dL Albumin/Globulin Ratio Urine Color (YELLOW) Urine Clarity (CLEAR) Urine pH (5.0-9.0) Ur Specific [place] (1.005-1.025) Urine Protein (NEG/TRACE) mg/dL Urine Glucose (UA) (NEGATIVE) mg/dL Urine Ketones (NEGATIVE) mg/dL Urine Occult Blood (NEGATIVE) Urine Nitrite (NEGATIVE) Urine Bilirubin (NEGATIVE) Urine Urobilinogen (0.2-1.0) EU/dL Ur Leukocyte Esterase (NEGATIVE) Urine RBC (0-2) #/HPF Urine WBC (NONE SEEN) #/HPF Ur Squamous Epith Cells (NONE/RARE) #/LPF Urine Crystals (None Seen) #/HPF Urine Bacteria (NONE SEEN) #/HPF Urine Casts (NONE SEEN) #/LPF Hyaline Casts Urine Mucus (NONE SEEN) Ur Culture Indicated? Urine Opiates Screen (NEGATIVE) Ur Buprenorphine Scrn (NEGATIVE) Ur Oxycodone Screen (NEGATIVE) Urine Methadone Screen (NEGATIVE) Ur Barbiturates Screen (NEGATIVE) U Tricyclic Antidepress (NEGATIVE) Ur Phencyclidine Scrn (NEGATIVE) Ur Amphetamines Screen (NEGATIVE) U Methamphetamines Scrn (NEGATIVE) U Benzodiazepines Scrn (NEGATIVE) Urine Cocaine Screen (NEGATIVE) U Cannabinoids Screen (NEGATIVE) Ethanol Quant mg/dL Discharge Plan Discharge Chief Complaint: Syncope Clinical Impression: Near syncope, Cannabis overdose, UTI (urinary tract infection) Patient Disposition: Home, Self-Care Print Language: Cymro Instructions: Urinary Tract Infection in Women (DC), Near Syncope (ED), Adult Overdose (ED) Referrals: Physician,Non-Staff, MD [Primary Care Provider] - 1 week
[2025-04-02] MEDS: 0.9 % SODIUM CHLORIDE 1,000 ML 999 ML IV ×2 (22:33)
--- NOTE | 2025-04-02 22:36 | PC.NURSE ---
Patient alert and answers questions appropriately. Patient admits to drinking approx. 4 glasses of wine and smoking marijauan. Denies any CP, SOB or any discomfort. at bedside.
[2025-04-02 22:40] LABS: Hematocrit 36.1 % (36.0-48.0); Hemoglobin 12.1 g/dL (12.0-16.0); Immature Granulocytes Abs Auto 0.03 10^3/uL (0.00-0.03); Immature Granulocytes Pct Auto 0.6 % (0.0-0.5); Lymphocytes Absolute Auto 1.2 10^3/uL (1.2-3.8); Mean Corpuscular HGB Conc 33.5 g/dL (29.9-35.2); Mean Corpuscular Hemoglobin 29.4 pg (26.7-34.0); Mean Corpuscular Volume 87.8 fL (81.0-99.0); Platelet Count 129 10^3/uL (150-450); Red Blood Count 4.11 10^6/uL (4.20-5.40); White Blood Count 4.8 10^3/uL (4.0-11.0)
[2025-04-02 22:51] LABS: Alanine Aminotransferase 32 U/L (14-59); Albumin Globulin Ratio 1.1; Albumin Level 3.4 g/dL (3.4-5.0); Alkaline Phosphatase 75 U/L (46-116); Anion Gap 14.4; Aspartate Amino Transferase 25 U/L (15-37); Blood Urea Nitrogen 16.0 mg/dL (7.0-18.0); Calcium 8.3 mg/dL (8.5-10.1); Carbon Dioxide 20.8 mmol/L (21.0-32.0); Chloride 103 mmol/L (98-107); Estimated GFR (African America >60 (>=60 mL/min/1.73m^2); Estimated GFR (Non-African Ame 57 (>=60 mL/min/1.73m^2); Globulin 3.2 g/dL; Glucose 93 mg/dL (74-106); Potassium 3.2 mmol/L (3.5-5.1); Sodium 135 mmol/L (136-145); Total Protein 6.6 g/dL (6.4-8.2)
[2025-04-02 22:55] LABS: Lactate/Lactic Acid 3.9 mmol/L (0.4-2.0)
[2025-04-02 23:58] LABS: Glucose Urine UA NEGATIVE (NEGATIVE)
[2025-04-02 23:58] LABS: Lactate/Lactic Acid 2.6 mmol/L (0.4-2.0)
[2025-04-03] VITALS: BP 118/72; PULSE 88; O2SAT 99
--- NOTE | 2025-04-03 00:03 | PC.NURSE ---
Awake and sitting up in bed. Tranfers to bedside commode without difficulty. Alert and oriented.
[2025-04-03 00:06] LABS: Cast Seen? SEEN #/LPF (NONE SEEN); Crystals Seen? None Seen #/HPF (None Seen); Urine Culture Indicated YES-FRMC
[2025-04-03 00:07] LABS: Cannabinoid Screen Urine POSITIVE (NEGATIVE); Methamphetamines Screen Urine NEGATIVE (NEGATIVE); Tricyclic Antidepressant Urine NEGATIVE (NEGATIVE)
[2025-04-03 00:15] VITALS: PULSE 86; O2SAT 97
[2025-04-03 00:30] VITALS: BP 123/68; PULSE 88; O2SAT 95
[2025-04-03 01:20] VITALS: BP 131/74; BP 132/73; PULSE 81; PULSE 82; PULSE 85
== END 2025-04-03 01:59 | disposition home or self-care (01) ==
PROVIDERS: Emergency Provider Internal Medicine
DX: T40.711A Poisoning by cannabis, accidental (unintentional), initial encounter (principal); R55 Syncope and collapse; N39.0 Urinary tract infection, site not specified
CPT/HCPCS: 36415; 71045; 80053; 80307; 80320; 81001; 83605; 84484; 85025; 87086; 87088; 87186; 93005; 96361; 96365; 99285; J0696